=== PATIENT | female | born 1965 | race African-American/Black ===

== ENCOUNTER 2016-03-10 11:42 | Emergency (ER) ==
--- NOTE | 2016-03-10 13:37 | PROVIDER DOCUMENTATION ---
HPI-General Adult - General Chief Complaint: Cold Symptoms Stated Complaint: COLD SX/CHEST PX Time Seen by Provider: 03/10/16 13:25 Source: patient Allergies/Adverse Reactions: Patient Allergies Allergy/AdvReac Type Severity Reaction Status Date / Time aspirin Allergy FLUSHING Verified 03/10/16 12:04 Home Medications: No Home Medications 09/14/15 - History of Present Illness -Gen Adult Nature of Presenting Problems: 51 y/o F presents to the ED c/o cough, congestion, body aches. onset x4 days ago. patient states she has a mild productive cough. denies fever and all other symptoms. Location of Pain/Injury: reports: generalized Quality of Pain: reports: aching Severity: reports: mild Onset/Duration: reports: 4 days ago Timing: reports: still present Context/Activities at Onset: reports: none Modifying Factors: improves with: nothing Associated Symptoms: reports: cough, fatigue, muscle aches, sinus congestion/ drainage, vomiting (x2) Similar Symptoms Previously?: No Review of Systems - Adult - REVIEW OF SYSTEMS - ADULT Constitutional: reports: chills. denies: fever Ears, Nose, Mouth & Throat: reports: sinus problem. denies: ear pain, throat pain Cardiovascular: denies: chest pain, palpitations Respiratory: reports: cough. denies: shortness of breath, wheezing Gastrointestinal: reports: vomiting (x2). denies: diarrhea, nausea Genitourinary: denies: dysuria, discharge, frequency Neurological: denies: dizziness/vertigo, headache/migraines Allergic/Immunologic: reports: eczema, hives Past History - Adult - PAST MEDICAL HISTORY-ADULT Review of Records: reports: Nursing Assessment Review, Social history reviewed & non-contributory. Major Childhood Illnesses: reports: denies history Cardiovascular: reports: denies history, other (fluid around heart) Respiratory: reports: denies history Gastrointestinal: reports: denies history Obstetrical/Gynecological: reports: denies history Genitourinary: reports: denies history Musculoskeletal: reports: denies history Neurological: reports: denies history Endocrine/Immune: reports: denies history Other Conditions: reports: denies history - PRIOR SURGERIES/PROCEDURES Surgical/Procedure History: reports: hysterectomy - IMMUNIZATION STATUS Childhood Immunizations: See Nurse Assessment Flu Vaccine: See Nurse Assessment - FAMILY HISTORY Family History: reviewed, not pertinent Physical Exam-General - PHYSICAL EXAM-ADULT Initial Vital Signs Reviewed: Yes - CONSTITUTIONAL General Appearance: alert, no apparent distress - EYES Eyes: PERRL/EOMI, pink conjunctivae - HEAD, EARS, NOSE, MOUTH & THROAT HENMT: moist mucous membranes, normal ENT inspection, pharynx normal - NECK Neck: full range of motion, normal inspection - RESPIRATORY Respiratory: lungs clear, normal breath sounds, no respiratory distress, no accessory muscle use - CARDIOVASCULAR Cardiovascular: normal peripheral pulses, regular rate, rhythm - GASTROINTESTINAL (ABDOMEN) Abdominal Exam: normal bowel sounds, non tender, soft - SKIN Integumentary: normal color, warm/dry - PSYCHIATRIC Psych/Mental Status: normal mood/affect, oriented x 3 Progress - PLAN OF CARE/RESULTS Progress/Plan/Lab Results: patient verbally understands discharge. advised to follow up with pcp if needed. - XRAY 1 XRAY Study: Chest Impression: Normal Departure - Departure Time of Disposition Order: 14:[id number] DIAGNOSIS: Viral syndrome Disposition: HOME 01 Certified Medical Emergency: Emergent Condition: Stable Additional Instructions: Follow up with primary care provider. ED Follow Up Instructions: You have been treated by a care provider in the Emergency Department. These instructions are being provided to you so you can have an understanding of how to care for yourself upon discharge. Upon discharge from the Emergency Department, you are responsible for making arrangements for follow-up care by a physician of your choice. Take all prescribed medications as directed. Return to the Emergency Department immediately for any new or worsening symptoms. You may call the Physician Referral phone number at [phone] to obtain a list of Physicians who are taking new patients. Referrals: Joseph Atkinson Jr, MD [Primary Care Provider] - Instructions: Viral Infections Attestation - Scribe Verification/Attestation Scribe:: Reza Gamino Acting as Scribe for:: Napoleon Yadav Scribe documention review:: This chart was documented by a scribe and accurately reflects the service the provider performed and the decisions made by the provider.
[2016-03-10 15:08] VITALS: BP 138/77
--- NOTE | 2016-03-10 15:16 | Diag Imaging Result Document ---
PROCEDURE NAME: CHEST-2 VIEWS - 03/10/2016 CHEST 2 VIEWS: Compared with 09/14/2015. FINDINGS: Heart size is normal. The lungs appear clear. There is no pleural effusion or pneumothorax seen. IMPRESSION: No evidence of acute disease.
== END 2016-03-10 15:07 | disposition home or self-care (01) ==
LOC: P.ED 11:42
DX: B34.9 Viral infection, unspecified (principal); R05 Cough; R09.81 Nasal congestion; M79.1 Myalgia; R09.3 Abnormal sputum; R53.83 Other fatigue; R11.10 Vomiting, unspecified; R68.83 Chills (without fever); L50.9 Urticaria, unspecified; L30.9 Dermatitis, unspecified
CPT/HCPCS: 71020; 87804; 99283

== ENCOUNTER 2016-03-14 14:21 | Emergency (ER) ==
[2016-03-14 14:41] VITALS: BP 139/71
--- NOTE | 2016-03-14 15:10 | PROVIDER DOCUMENTATION ---
HPI-General Adult - General Chief Complaint: Flu Symptoms Stated Complaint: FLU SX Time Seen by Provider: 03/14/16 14:47 Source: patient, family Allergies/Adverse Reactions: Patient Allergies Allergy/AdvReac Type Severity Reaction Status Date / Time aspirin Allergy FLUSHING Verified 03/10/16 12:04 - History of Present Illness -Gen Adult Nature of Presenting Problems: 51 y/o BF c/o cough, fever, chills, congestion, vomiting x 5 days. Pt states she was seen 4 days ago and given tussin, but it is not helping. States coughing up 'orange' mucus and vomits with coughin, approx. 3 times daily. Denies any diarrhea. No other sxs reported. Review of Systems - Adult - REVIEW OF SYSTEMS - ADULT Constitutional: reports: chills, fever Eyes: reports: no symptoms reported. denies: blurred vision, double vision Ears, Nose, Mouth & Throat: reports: no symptoms reported. denies: ear pain, nose pain Cardiovascular: reports: no symptoms reported. denies: chest pain, palpitations Respiratory: reports: see HPI, cough. denies: shortness of breath Gastrointestinal: reports: see HPI, vomiting. denies: abdominal pain, diarrhea Genitourinary: reports: no symptoms reported. denies: dysuria, frequency Musculoskeletal: reports: see HPI, muscle aches. denies: joint pain, joint swelling Integumentary: reports: no symptoms reported. denies: nail changes, rash Neurological: reports: no symptoms reported. denies: headache/migraines, numbness, paresthesia Psychiatric: reports: no symptoms reported Endocrine: reports: no symptoms reported. denies: cold intolerance, heat intolerance Hematologic/Lymphatic: reports: no symptoms reported. denies: easy bruising, prolonged bleeding Allergic/Immunologic: reports: no symptoms reported All Other Systems: Reviewed and Negative Past History - Adult - PAST MEDICAL HISTORY-ADULT Review of Records: reports: Nursing Assessment Review, Medications Reviewed Major Childhood Illnesses: reports: denies history Cardiovascular: reports: denies history, other (fluid around heart) Respiratory: reports: denies history Gastrointestinal: reports: denies history Obstetrical/Gynecological: reports: denies history Genitourinary: reports: denies history Musculoskeletal: reports: denies history Neurological: reports: denies history Endocrine/Immune: reports: denies history Other Conditions: reports: denies history - PRIOR SURGERIES/PROCEDURES Surgical/Procedure History: reports: hysterectomy - IMMUNIZATION STATUS Childhood Immunizations: See Nurse Assessment Flu Vaccine: See Nurse Assessment - FAMILY HISTORY Family History: reviewed, not pertinent - SOCIAL HISTORY Smoking: denies Physical Exam-General - PHYSICAL EXAM-ADULT Initial Vital Signs Reviewed: Yes - CONSTITUTIONAL General Appearance: alert, moderate distress - EYES Eyes: pink conjunctivae - HEAD, EARS, NOSE, MOUTH & THROAT HENMT: normocephalic/atraumatic, moist mucous membranes, pharynx normal - NECK Neck: normal inspection. negative: lymphadenopathy - RESPIRATORY Respiratory: lungs clear, normal breath sounds. negative: crackles, rales, rhonchi, stridor, wheezing - CARDIOVASCULAR Cardiovascular: regular rate, rhythm. negative: bradycardia, tachycardia - GASTROINTESTINAL (ABDOMEN) Abdominal Exam: normal bowel sounds, non tender, soft. negative: distended, guarding, rigid - MUSCULOSKELETAL Extremity: normal gait - SKIN Integumentary: normal color, normal turgor, warm/dry - NEUROLOGIC Neurologic: negative: aphasia - PSYCHIATRIC Psych/Mental Status: normal mood/affect, normal thought content, normal thought process, oriented x 3 Progress - XRAY 1 XRAY Study: Chest XRAY Interpretation: No PNA Departure - Departure Time of Disposition Order: 15:37 DIAGNOSIS: URI (upper respiratory infection) Qualifiers: URI type: unspecified URI Qualified Code(s): J06.9 - Acute upper respiratory infection, unspecified Disposition: HOME 01 Certified Medical Emergency: Emergent Condition: Stable Additional Instructions: Take medications as directed. Follow up with PCP in 2-3 days for recheck. Return if symptoms get worse. ED Follow Up Instructions: You have been treated by a care provider in the Emergency Department. These instructions are being provided to you so you can have an understanding of how to care for yourself upon discharge. Upon discharge from the Emergency Department, you are responsible for making arrangements for follow-up care by a physician of your choice. Take all prescribed medications as directed. Return to the Emergency Department immediately for any new or worsening symptoms. You may call the Physician Referral phone number at [phone] to obtain a list of Physicians who are taking new patients. Prescriptions: Amoxicillin [Amoxil] 875 mg PO BID #14 tablet Guaifenesin/D-Methorphan Hb/PE [Deconex Dmx Tablet] 1 each PO TID #30 tablet Methylprednisolone [Medrol Dosepak] 4 mg PO DIRECTED #1 package Attestation - Physician/ Mid-level Attestation Patient care was provided by Mid-level provider ([employer]JECT [employer] WORKER/PA):: Yes Mid-level provider:: Scarlett Diaz Mid-level documentation review:: The Mid-level provider documentation, treatment plan and medical decision making was reviewed by the physician who agrees with all treatment and medical decision making by the MLP.
--- NOTE | 2016-03-14 15:20 | Diag Imaging Result Document ---
PROCEDURE NAME: CHEST-2 VIEWS - 03/14/2016 PA AND LATERAL RADIOGRAPHS OF THE CHEST: COMPARISON: 03/10/2016. FINDINGS: The lungs are grossly clear. There is no discrete pleural fluid collection or evidence of pneumothorax. The cardiomediastinal silhouette and upper airway are grossly unremarkable. IMPRESSION: No evidence of acute chest pathology.
== END 2016-03-14 15:55 | disposition home or self-care (01) ==
LOC: ED 14:21
DX: J06.9 Acute upper respiratory infection, unspecified (principal); R05 Cough; R50.9 Fever, unspecified; R09.81 Nasal congestion; R11.10 Vomiting, unspecified; R09.3 Abnormal sputum; M79.1 Myalgia
CPT/HCPCS: 71020; 87804; 99283